=== PATIENT | female | born 1985 | race Caucasian/White ===

== ENCOUNTER 2018-09-17 16:00 | Inpatient (IN) ==
--- NOTE | 2018-09-17 16:29 | Emergency Department Note ---
Disposition Clinical Impression: Wide-complex tachycardia, Palpitations Disposition: Admitted As Inpatient Time of Disposition: 19:22 Arrhythmia/Palpitations HPI - General Chief Complaint: ED Arrhythmia/Palpitations Stated Complaint: Palpatations Time Seen by Provider: 09/17/18 16:03 Source: patient Limitations: no limitations Nursing Notes Reviewed: Yes Vital Signs Reviewed: Yes - History of Present Illness HPI Narrative: Patient is a 33-year-old female with no significant past medical history. Patient states she is on spironolactone for thinning of the hair. She also is on control pills. She denies anti-anxiolytic or anti-depressive medications. She also states she takes a multivitamin and [id number] cranberry pills. She states after a year and a half, she reintroduced caffeinated pop into her diet. She drinks 10-20 ounces of soda pop per day. Yesterday, she had a 15 minute episode of palpitations and feeling lightheaded while sitting watching the baseball game. Symptoms resolved spontaneously. She states she has never sprained this before. Today around 12:30 PM, she complains of frequent prolonged episodes of palpitations. She states she feels like her heart is fluttering and she has a double left-sided chest pain ache associated with it. She also complains of shortness of breath and lightheadedness at times. She states she has a family history of a grandfather having an myocardial infarction and a brother with a murmur. Her father has hypertension and hyperlipidemia. She denies recent antibiotic use, fevers or chills, Abdominal pain, nausea oing, dysuria, hematuria, diarrhea. - Related Data Home Medications Medication Instructions Recorded Confirmed Cetirizine HCl [Zyrtec] 10 mg PO DAILY 09/17/18 09/17/18 Cranberry Conc/C/Bacill Coag 1 each PO DAILY 09/17/18 09/17/18 [Cranberry Tablet] Desog-E.estradiol/E.estradiol 1 tab PO DAILY 09/17/18 09/17/18 [Viorele 28 Day Tablet] Spironolactone 100 mg PO DAILY 09/17/18 09/17/18 Allergies Allergy/AdvReac Type Severity Reaction Status Date / Time No Known Allergies Allergy Verified 09/17/18 16:03 All systems ED: reviewed and negative except as stated. Review of Systems: As Per HPI Constitutional: Denies: fever, chills Cardiovascular: Reports: chest pain, palpitations Respiratory: Reports: dyspnea. Denies: cough Gastrointestinal: Denies: abdominal pain, nausea, vomiting Genitourinary: Denies: dysuria, hematuria Neurological: Denies: headache, weakness Past Medical History - Past Medical History Attestation: Yes The following information was validated with the patient. Source: patient Medical history: Reports: no medical history - Social History Smoking Status: Never smoker Alcohol use: Reports: none Drug use: Reports: none Physical Exam - General Limitations: no limitations General appearance: alert, in no apparent distress - Head Head exam: atraumatic, normocephalic, normal inspection - Eye Eye exam: Present: normal appearance, EOMI - ENT ENT exam: normal exam, mucous membranes moist - Neck Neck exam: Present: normal inspection, trachea midline - Chest Chest inspection: Present: normal inspection, symmetric chest wall rise - Respiratory Respiratory exam: Present: normal lung sounds bilaterally. Absent: respiratory distress, wheezes - Cardiovascular Cardiovascular exam: Present: other (Regular rate and normal rhythm with a 5 beat sinus tachycardia, spontaneously converting back to sinus rhythm. No murmur) - Abdominal Exam Abdominal exam: Present: soft, Non-Tender. Absent: distention - Extremities Exam Extremities exam: Present: normal capillary refill. Absent: pedal edema, calf tenderness - Neurological Exam Neurological exam: Present: alert, oriented X3 - Skin Skin exam: Present: warm, diaphoresis. Absent: pallor Course Vital Signs Temperature 97.8 F 09/17/18 16:01 Pulse Rate 82 09/17/18 16:01 Respiratory Rate 16 09/17/18 16:01 Blood Pressure 140/85 09/17/18 16:01 O2 Sat by Pulse Oximetry 98 09/17/18 16:01 Temperature 97.8 F 09/17/18 16:01 Pulse Rate 82 09/17/18 16:01 Respiratory Rate 16 09/17/18 16:01 Blood Pressure 140/85 09/17/18 16:01 O2 Sat by Pulse Oximetry 98 09/17/18 16:01 Oxygen Delivery Oxygen Delivery Room Air Arrhythmia/Palpitations - MDM Narrative Medical decision making narrative: During my physical examination, the patient was not on the monitor. During my cardiac exam, there is a period of 4-5 beats when the patient went into tachycardia and converted spontaneously to a normal sinus rhythm. No murmurs were heard. Lab work including TSH, CBC, BMP, mag, Allegra, troponin, d-dimer were all obtained. 16:25 The initial EKG was obtained and patient was placed on the monitor. She is having episodic wide-complex tachycardia. She spontaneously converts to normal sinus rhythm. Episodes are occurring frequently. Secondary to the prolonged QTC, magnesium 2 g was given. After, amiodarone 150 mg bolus was given with IV fluids. Patient has been closely monitored. She continues to have prolonged periods of wide-complex tachycardia. The patient states she feels her heart fluttering but denies lightheadedness, chest pain, shortness of breath. She remains alert and oriented during these episodes. A second bolus of 150 mg amiodarone was given followed by amiodarone drip 1 mg per minute. Calcium chloride was also given. Dr. Grimm discussed with cardiology. Stat echoca rdiogram will be obtained. 17:45 The patient remains asymptomatic, alert and oriented. She denies chest pain or shortness of breath. Blood pressures remained normotensive. We are continuing with the amiodarone drip. Episodes of wide-complex ventricular tachycardia or nonsustained and less frequent. We are continuing to monitor her closely. Labs are reviewed. D-dimer is not elevated, electrolytes are within normal limits. If the patient continues to have more frequent episodes where he stays in sustained V. tach, we will try procainamide. 18:[address] Smart, Cardiology. Will add urine tox screen and start metoprolol 25mg BID. Continue amiodarone drip. She will receive her first dose of metoprolol here in the emergency department. She will require ICU admission. Hospitalist will be paged for admission. 19:[address] Benitez, hospitalist, who accepts admission to ICU. Patient remains stable. - Medical Records Medical records reviewed: Yes I reviewed the patient's medical records. - Lab Data Lab results reviewed: Yes I reviewed the patient's lab results. Result diagrams: 09/18/18 04:57 09/18/18 04:57 Lab Results 09/17/18 09/17/18 09/17/18 Range/Units 16:20 16:20 16:23 WBC 10.9 (4.3-11.1) K/mcL RBC 4.89 (3.82-4.97) M/mcL Hgb 13.4 (11.5-15.4) g/dL Hct 41.2 (35.3-44.9) % MCV 84.3 (83.0-100.0) fL MCH 27.4 L (28.0-33.3) pg MCHC 32.5 (31.6-35.5) g/dL RDW 14.2 (11.5-14.5) % Plt Count 387 (140-400) K/mcL MPV 9.2 L (9.4-12.4) fL Immature Gran % 0.4 (0-4) % Seg Neutrophils % 59.7 % Lymphocytes % 31.3 % Monocytes % 7.2 % Eosinophils % 0.9 % Basophils % 0.5 % Neutrophils # 6.5 (1.6-8.9) K/mcL Lymphocytes # 3.4 (0.6-4.6) K/mcL Monocytes # 0.8 (0.0-1.3) K/mcL Eosinophils # 0.1 (0.0-0.6) K/mcL Basophils # 0.1 (0.0-0.2) K/mcL D-Dimer 351 (0-500) ng/mLFEU Sodium 142 (136-145) mEq/L Potassium 3.6 (3.5-5.1) mEq/L Chloride 109 H (98-107) mEq/L Carbon Dioxide 22 L (23-29) mEq/L BUN 11 (6-20) mg/dL Creatinine 0.78 (0.60-1.20) mg/dL Est GFR ( Amer) > 60 (> 60) Est GFR (Non-Af Amer) > 60 (> 60) BUN/Creatinine Ratio 14 (6-26) Glucose 111 H (70-105) mg/dL Calculated Osmolality 294 (280-300) Calcium 9.1 (8.6-10.3) mg/dL Phosphorus 3.2 (2.7-4.5) mg/dL Magnesium 2.0 (1.6-2.6) mg/dL Troponin I < 0.03 (< 0.04) ng/mL TSH 2.280 (0.340-5.600) mcIU/mL Urine Color (Yellow) Urine Clarity (Clear) Urine pH (5.0-8.0) pH Units Ur Specific [place] (1.010-1.025) Urine Protein (Neg-Trace) mg/dL Urine Glucose (UA) (Normal) mg/dL Urine Ketones (Negative) mg/dL Urine Blood (Negative) Urine Nitrite (Negative) Urine Bilirubin (Negative) Urine Urobilinogen (Normal) mg/dL Ur Leukocyte Esterase (Negative) Urine Microscopic RBC (0-3) per hpf Urine Microscopic WBC (0-3) per hpf Ur Squamous Epith Cells (None-Few) per lpf Urine Bacteria (None-Few) per hpf Hyaline Casts (None-Few) per lpf Ur Culture Indicated? (NO) Urine Test (Negative) Urine Opiates Screen (Jdmidz=702) ng/mL Ur Barbiturates Screen (Zekxxp=654) ng/mL Ur Phencyclidine Scrn (Cutoff=25) ng/mL Ur Amphetamines Screen (Icchft=7097) ng/mL U Benzodiazepines Scrn (Jbhknh=665) ng/mL Urine Cocaine Screen (Cutoff= 300) ng/mL U Marijuana (THC) Screen (Cutoff = 50) ng/mL Ur Drug Screen Interp 09/17/18 09/17/18 09/17/18 Range/Units 16:39 16:39 16:39 WBC (4.3-11.1) K/mcL RBC (3.82-4.97) M/mcL Hgb (11.5-15.4) g/dL Hct (35.3-44.9) % MCV (83.0-100.0) fL MCH (28.0-33.3) pg MCHC (31.6-35.5) g/dL RDW (11.5-14.5) % Plt Count (140-400) K/mcL MPV (9.4-12.4) fL Immature Gran % (0-4) % Seg Neutrophils % % Lymphocytes % % Monocytes % % Eosinophils % % Basophils % % Neutrophils # (1.6-8.9) K/mcL Lymphocytes # (0.6-4.6) K/mcL Monocytes # (0.0-1.3) K/mcL Eosinophils # (0.0-0.6) K/mcL Basophils # (0.0-0.2) K/mcL D-Dimer (0-500) ng/mLFEU Sodium (136-145) mEq/L Potassium (3.5-5.1) mEq/L Chloride (98-107) mEq/L Carbon Dioxide (23-29) mEq/L BUN (6-20) mg/dL Creatinine (0.60-1.20) mg/dL Est GFR ( Amer) (> 60) Est GFR (Non-Af Amer) (> 60) BUN/Creatinine Ratio (6-26) Glucose (70-105) mg/dL Calculated Osmolality (280-300) Calcium (8.6-10.3) mg/dL Phosphorus (2.7-4.5) mg/dL Magnesium (1.6-2.6) mg/dL Troponin I (< 0.04) ng/mL TSH (0.340-5.600) mcIU/mL Urine Color Yellow (Yellow) Urine Clarity Clear (Clear) Urine pH 6.0 (5.0-8.0) pH Units Ur Specific [place] 1.011 (1.010-1.025) Urine Protein Negative (Neg-Trace) mg/dL Urine Glucose (UA) Normal (Normal) mg/dL Urine Ketones Negative (Negative) mg/dL Urine Blood Negative (Negative) Urine Nitrite Negative (Negative) Urine Bilirubin Negative (Negative) Urine Urobilinogen Normal (Normal) mg/dL Ur Leukocyte Esterase Small H (Negative) Urine Microscopic RBC 0-3 (0-3) per hpf Urine Microscopic WBC 15-30 H (0-3) per hpf Ur Squamous Epith Cells Many H (None-Few) per lpf Urine Bacteria None Seen (None-Few) per hpf Hyaline Casts None Seen (None-Few) per lpf Ur Culture Indicated? YES A (NO) Urine Test Negative (Negative) Urine Opiates Screen Negative (Hczjxt=818) ng/mL Ur Barbiturates Screen Negative (Uxmeze=627) ng/mL Ur Phencyclidine Scrn Negative (Cutoff=25) ng/mL Ur Amphetamines Screen Negative (Zousmv=8093) ng/mL U Benzodiazepines Scrn Negative (Cdaxwz=431) ng/mL Urine Cocaine Screen Negative (Cutoff= 300) ng/mL U Marijuana (THC) Screen Negative (Cutoff = 50) ng/mL Ur Drug Screen Interp See Below - Radiology Data Radiology results reviewed: Yes I reviewed the patient's radiology results. Chest X-Ray 09/17/18 16:20 IMPRESSION: Negative portable study. D/ / Joan Barron Cha, MD / Joan Barron Cha, MD Interpreting Provider: Joan Barron Cha, MD Echocardiogram 09/17/18 17:25 Impressions: LVEF 65%. Normal LV chamber size, wall thickness and function. Normal left ventricular diastolic function. Normal right ventricular structure and function. Unable to estimate RVSP due to lack of TR jet. No significant valvular dysfunction. Left Ventricular Wall Motion: Rest Echo Findings All wall segments showed normal motion. Findings: Study Quality * Technically adequate exam. ECG Findings * Sinus tachycardia. Left Ventricle * LVEF 65%. * Normal LV chamber size, wall thickness and function. * Normal left ventricular diastolic function. Right Ventricle * Normal right ventricular structure and function. Left Atrium * Normal left atrial size. Right Atrium * Normal right atrial size. Interatrial Septum * Interatrial septum not well evaluated. Aortic Valve * Aortic valve not well visualized. * No aortic regurgitation. * No aortic stenosis. Mitral Valve * Normal mitral valve structure. * No mitral regurgitation. * No mitral stenosis. Tricuspid Valve * Trace tricuspid regurgitation. * No tricuspid stenosis. * Normal tricuspid valve structure. * Unable to estimate RVSP due to lack of TR jet. Pulmonic Valve * No pulmonic regurgitation. Aorta * Normally sized aortic root. Pericardium * The pericardium appears normal. IVC * Normal IVC dimensions and inspiratory collapse. Pulmonary Artery * Pulmonary artery not well visualized. - EKG Data EKG attestation: Yes I reviewed and interpreted this EKG. EKG results narrative: Initial EKG at 1626 shows wide complex tachycardia with heart rate 233. She has a prolonged QTC of 615. Critical Care Time Critical Care Time: Yes Total Critical Care Time: 55 Attestation: Critical care time was exclusive of separately billable procedures and treating other patients. Critical care was necessary to treat or prevent imminent or life-threatening deterioration. Critical care was time spent personally by me on the following activities: development of treatment plan with patient and/or surrogate as well as nursing, discussions with consultants, evaluation of patient's response to treatment, examination of patient, obtaining history from patient or surrogate, ordering and performing treatments and interventions, ordering and review of laboratory studies, ordering and review of radiographic studies, pulse oximetry and re-evaluation of patient's condition. Attestation Statement - Attestation Attestation: Resident Attestation: I examined this patient and my medical decision making was reviewed with the Resident Physician. I agree with the documented findings, disposition and treatment plan as described except to the extent set forth below. We independently had [id number] contact with the patient. Patient was presenting for evaluation of palpitations. Patient had intermittent episodes of feeling lightheaded and dizzy. While in the room evaluating her the patient was having runs of right complex tachycardia. Patient's episodes have been intermittent lasting anywhere from 5-20 seconds. Patient would then go back to sinus rhythm. During her runs of V. tach the patient's blood pressure remained stable. I did given initial dose of 150 mg of amiodarone. Patient did not have any significant response. Her initial EKG was concerning for prolonged QT so 2 mg of magnesium were given. With no significant response cardiology was paged. A second dose of 150 mg of amiodarone was given an amiodarone drip was started. Cardiology recommended procainamide if continued symptoms. Patient has not been unstable has not required cardioversion. The patient did receive calcium given the fact that she is not had significant response during the amiodarone treatment. After the completion of the second amiodarone bolus the patient started having only short runs of approximately 5 seconds of V. tach. This continued to become less frequent until the patient had a stable sinus rhythm. Patient has had occasional episodes of nonsustained V. tach proximally 4-5 seconds after this. Cardiology did come bedside to evaluate the patient. Patient will be admitted to the ICU for continued monitoring. General appearance: NAD, conversant Eyes: anicteric sclerae, moist conjunctivae HENT: Atraumatic; oropharynx clear with moist mucous membranes Neck: Normal appearance; Trachea midline Chest: Symmetrical chest rise; No respiratory distress Heart: Regular rate and rhythm Lungs: Clear to auscultation bilaterally Extremities: No peripheral edema or extremity tenderness Skin: Normal temperature, turgor and texture; no rash, ulcers or subcutaneous nodules Psych: Appropriate mood and affect Neuro: Awake and alert
[2018-09-17] MEDS ORDERED: 0.9 % Sodium Chloride 1,000 ML ONE (16:39)
[2018-09-17 16:55] LABS: Bilirubin,Urine Negative (Negative); Blood,Urine Negative (Negative); Clarity,Urine Clear (Clear); Color,Urine Yellow (Yellow); Glucose,Urine (UA) Normal (Normal); Ketones,Urine Negative (Negative); Leukocyte Esterase,Urine Small (Negative); Nitrite,Urine Negative (Negative); Protein,Urine Negative (Neg-Trace); Specific Gravity,Urine 1.011 (1.010-1.025); Urobilinogen,Urine Normal (Normal)
[2018-09-17 16:55] LABS: Basophils # 0.1 K/mcL (0.0-0.2); Basophils % 0.5 %; Eosinophils # 0.1 K/mcL (0.0-0.6); Eosinophils % 0.9 %; Hematocrit 41.2 % (35.3-44.9); Hemoglobin 13.4 g/dL (11.5-15.4); Immature Granulocytes % 0.4 % (0-4); Lymphocytes # 3.4 K/mcL (0.6-4.6); Lymphocytes % 31.3 %; Mean Corpuscular HGB Conc 32.5 g/dL (31.6-35.5); Mean Corpuscular Hemoglobin 27.4 pg (28.0-33.3); Mean Corpuscular Volume 84.3 fL (83.0-100.0); Mean Platelet Volume 9.2 fL (9.4-12.4); Monocytes # 0.8 K/mcL (0.0-1.3); Monocytes % 7.2 %; Neutrophils # 6.5 K/mcL (1.6-8.9); Platelet Count 387 K/mcL (140-400); Red Blood Count 4.89 M/mcL (3.82-4.97); Red Cell Distribution Width 14.2 % (11.5-14.5); Segmented Neutrophils % 59.7 %
[2018-09-17 16:58] LABS: Bacteria,Urine None Seen per hpf (None-Few); Hyaline Casts,Urine None Seen per lpf (None-Few); RBC,Urine 0-3 per hpf (0-3); Squamous Epithelial Cell,Urine Many per lpf (None-Few); WBC,Urine 15-30 per hpf (0-3)
[2018-09-17 17:13] LABS: BUN/Creatinine Ratio 14 (6-26); Blood Urea Nitrogen 11 mg/dL (6-20); Calcium 9.1 mg/dL (8.6-10.3); Carbon Dioxide 22 mEq/L (23-29); Chloride 109 mEq/L (98-107); Glucose 111 mg/dL (70-105); Osmolality,Calculated 294 (280-300); Phosphorous 3.2 mg/dL (2.7-4.5); Potassium 3.6 mEq/L (3.5-5.1); Sodium 142 mEq/L (136-145); Troponin I < 0.03 ng/mL (< 0.04); eGFR For Non-African Americans > 60 (> 60)
[2018-09-17] MEDS ORDERED: Amiodarone Premix 150 MG/100 ML BAG IVPB ONE ×2 (17:21)
[2018-09-17] MEDS ORDERED: Amiodarone Premix 360 MG/200 ML BAG IVC ONE (17:21)
[2018-09-17] MEDS ORDERED: 0.9 % Sodium Chloride 1,000 ML IVC ONE ×2 (17:22→17:33)
[2018-09-17] MEDS ORDERED: D5 IVPB STA (17:27)
[2018-09-17] MEDS ORDERED: WATER IVPB STA (17:27)
[2018-09-17] MEDS ORDERED: PROCAINAMIDE IVPB STA (17:27)
--- NOTE | 2018-09-17 18:43 | Cardiology Consult Note ---
Date of Encounter: 09/17/18 Time of Encounter: 18:00 Assessment and Plan (1) Wide-complex tachycardia Current Visit: Yes Status: Acute Repetitive and and intermittent episodes of regular monomorphic wide complex tachycardia, suspicious of repetitive monomorphic VT Seems to be responding to amiodarone at this time as the rate has slowed down. Continue IV amiodarone maintenance. Obtain echocardiogram. Check TSH and urine toxicology.Keep K above 4 and Mag above 2. Will consult EP Discussion w patient/family: The assessment and plan as outlined above was discussed with the patient and/or family members who expressed understanding and agreement. All questions were answered. Thank you for involving us in the care of your patient. Please call with any questions. History of Present Illness Consult date: 09/17/18 Requesting physician: Dennis Grimm Consult reason: Wide complex tachycardia Chief complaint: Palpitations History of present illness: Ms. Chappell is a 33 year old female 33-year-old female with no past medical history, presenting with intermittent episodes of palpitations since yesterday, which caused more frequent around mid day today. Described as "fluttering in the chest "with associated lightheadedness and anxiety. Denies chest pain. No family history of sudden or premature coronary artery disease. She has no known history of congenital heart disease. She does not use illicit substances. She has 2 children who are alive and well. No history suggestive of cardiomyopathy. In the ER she was reportedly experiencing intermittent episodes of wide complex tachycardia on the monitor, which did not respond to initial bolus of IV amiodarone 150 mg, and so cardiology was emergently consulted. Past Med Surg Social Fam HX - Past Medical History Medical history: no medical history - Social History Smoking Status: Never smoker Alcohol use: none Drug use: none Medications and Allergies Cetirizine HCl [Zyrtec] 10 mg PO DAILY 09/17/18 [History] Cranberry Conc/C/Bacill Coag [Cranberry Tablet] 1 each PO DAILY 09/17/18 [History] Desog-E.estradiol/E.estradiol [Viorele 28 Day Tablet] 1 tab PO DAILY 09/17/18 [History] Spironolactone 100 mg PO DAILY 09/17/18 [History] Allergy/AdvReac Type Severity Reaction Status Date / Time No Known Allergies Allergy Verified 09/17/18 16:03 All Systems Review: The remainder of the systems were reviewed and are negative - Constitutional Constitutional: fatigue, no fever(s) - EENT Eyes: no blurred vision - Cardiovascular Cardiovascular: lightheadedness, rapid heart rate, no dyspnea on exertion, no radiating jaw, neck or arm pain, no leg edema, no paroxysmal nocturnal dyspnea, no slow heart rate - Respiratory Respiratory: no cough, no dyspnea, no wheezing - Gastrointestinal Gastrointestinal: no abdominal pain - Musculoskeletal Musculoskeletal: no muscle weakness - Neurological Neurological: no abnormal speech, no syncope - Psychiatric Psychiatric: anxiety - Hematological/Lymphatic Hematologic/Lymphatic: no easy bleeding Physical Examination Vital Signs, Last 4 Hours Temp Pulse Resp BP Pulse Ox 09/17/18 16:01 97.8 F 82 16 140/85 98 General: Conversant, Other (Anxious) HEENT: Atraumatic Neck: No JVD Cardiac: Reg Rate and Rhythm, Normal S1 and S2, No Murmur Lungs: Normal Breath Sounds, No Wheeze, Rales, Rhonchi Neuro: Alert and responsive, No focal deficits noted Musculoskeletal: No Chest Wall Tenderness Extremities: No Edema, Normal Pulses Results 09/17/18 16:20 09/17/18 16:20 Lab Results 09/17/18 09/17/18 09/17/18 16:20 16:20 16:23 WBC 10.9 Hgb 13.4 Hct 41.2 Plt Count 387 D-Dimer 351 Sodium 142 Potassium 3.6 Chloride 109 H Carbon Dioxide 22 L BUN 11 Creatinine 0.78 Glucose 111 H Calcium 9.1 Magnesium 2.0 Troponin I < 0.03 TSH 2.280 Consult Discharge Plan - Plan Referrals: Joan Vyas CNP [Primary Care Provider] -
[2018-09-17 19:14] LABS: Amphetamine Screen,Urine Negative ng/mL (Cutoff=1000); Barbiturate Screen,Urine Negative ng/mL (Cutoff=200); Benzodiazepines Screen,Urine Negative ng/mL (Cutoff=200); Cannabinoid Screen,Urine Negative ng/mL (Cutoff = 50); Cocaine Screen,Urine Negative ng/mL (Cutoff= 300); Opiate Screen,Urine Negative ng/mL (Cutoff=300); Phencyclidine Screen,Urine Negative ng/mL (Cutoff=25)
--- NOTE | 2018-09-17 20:00 | Internal Med History&Physical ---
<KillianColeen N - Last Filed: 09/18/18 03:05> Date of Encounter: 09/18/18 Time of Encounter: 19:59 Internal Medicine - H&P: HPI Chief complaint: Palpitations Admitted From: Emergency Dept History of present illness: Ms. Chappell is a 33 year old female with a history of alopecia who presents the emergency departments afternoon for evaluation of palpitations. Patient reports that she began having 10-20 minute episode of palpitations yesterday, which she described as her "heart fluttering", that self resolved and were not associated with shortness of breath or lightheadedness. She states that around 12:30 this afternoon, she began to feel a similar sensation; however, this persisted, prompting her to continue emergency room for evaluation. EKG was obtained, which demonstrated wide complex tachycardia, with prolonged QTC of 6:15 and rate of 233, concerning for repetitive episodes of monomorphic ventricular tachycardia. Patient was administered amiodarone bolus and on however, she was not responsive to initial dose, prompting cardiology consultation on the emergency department. Patient was also administered calcium and magnesium, and was eventually controlled with amiodarone drip. Once rate controlled, patient reported resolution of symptoms. Patient was admitted to the hospitalist service for ongoing monitoring and continuation of amiodarone drip. Past Med Surg Social Fam HX - Past Medical History Medical history: no medical history - Social History Smoking Status: Never smoker Alcohol use: none Drug use: none Internal Medicine - H&P: Meds Cetirizine HCl [Zyrtec] 10 mg PO DAILY 09/17/18 [History] Cranberry Conc/C/Bacill Coag [Cranberry Tablet] 1 each PO DAILY 09/17/18 [History] Desog-E.estradiol/E.estradiol [Viorele 28 Day Tablet] 1 tab PO DAILY 09/17/18 [History] Spironolactone 100 mg PO DAILY 09/17/18 [History] Allergy/AdvReac Type Severity Reaction Status Date / Time No Known Allergies Allergy Verified 09/17/18 16:03 All Systems PM: A 10-system review of systems was performed and is negative for pertinent findings except as documented above in the HPI. - Constitutional Constitutional: no chills, no fever(s), no night sweats - Cardiovascular Cardiovascular ROS IM: palpitations, no chest pain, no diaphoresis, no dyspnea, no lightheadedness, no syncope - Respiratory Respiratory: dyspnea, no cough, no wheezing, no excessive phlegm production - Constitutional Vitals: Temp Pulse Resp BP Pulse Ox 97.8 F 82 16 140/85 98 09/17/18 16:01 09/17/18 16:01 09/17/18 16:01 09/17/18 16:01 09/17/18 16:01 Exam: GENERAL: Well-developed, well-nourished adult female in no acute distress. She is resting in bed comfortably. HEENT: Atraumatic and normocephalic. CARDIOVASCULAR: Regular rate and rhythm. S1 and S2 present. No murmurs, gallops, or rubs. RESPIRATORY: Clear to auscultation bilaterally. Chest rises and falls symmetrica lly without accessory muscle use. GASTROINTESTINAL: Abdomen is soft, nontender, nondistended. Bowel sounds present 4 quadrants. EXTREMITIES: No clubbing, cyanosis, or edema. SKIN: Warm, dry, and intact. NEUROLOGIC: Alert and oriented x3. Patient is cooperative with exam and answers questions appropriately. No apparent focal deficits. PSYCHIATRIC: Appropriate mood and affect. Internal Med - H&P Results - Labs CBC & Chem 7: 09/17/18 16:20 09/17/18 16:20 Labs: Short CBC 09/17/18 Range/Units 16:20 WBC 10.9 (4.3-11.1) K/mcL Hgb 13.4 (11.5-15.4) g/dL Hct 41.2 (35.3-44.9) % Plt Count 387 (140-400) K/mcL Neutrophils # 6.5 (1.6-8.9) K/mcL BMP 09/17/18 16:20 Sodium 142 Potassium 3.6 Chloride 109 H Carbon Dioxide 22 L BUN 11 Creatinine 0.78 Glucose 111 H Calcium 9.1 Cardiac Enzymes 09/17/18 Range/Units 16:20 Troponin I < 0.03 (< 0.04) ng/mL Urine 09/17/18 Range/Units 16:39 Urine Color Yellow (Yellow) Urine Clarity Clear (Clear) Urine pH 6.0 (5.0-8.0) pH Units Ur Specific [place] 1.011 (1.010-1.025) Urine Protein Negative (Neg-Trace) mg/dL Urine Glucose (UA) Normal (Normal) mg/dL - Impressions ITS Impressions Chest X-Ray 09/17/18 16:20 IMPRESSION: Negative portable study. D/ / Joan Barron Cha, MD / Joan Barron Cha, MD Interpreting Provider: Joan Barron Cha, MD Echocardiogram 09/17/18 17:25 Impressions: LVEF 65%. Normal LV chamber size, wall thickness and function. Normal left ventricular diastolic function. Normal right ventricular structure and function. Unable to estimate RVSP due to lack of TR jet. No significant valvular dysfunction. Left Ventricular Wall Motion: Rest Echo Findings All wall segments showed normal motion. Findings: Study Quality * Technically adequate exam. ECG Findings * Sinus tachycardia. Left Ventricle * LVEF 65%. * Normal LV chamber size, wall thickness and function. * Normal left ventricular diastolic function. Right Ventricle * Normal right ventricular structure and function. Left Atrium * Normal left atrial size. Right Atrium * Normal right atrial size. Interatrial Septum * Interatrial septum not well evaluated. Aortic Valve * Aortic valve not well visualized. * No aortic regurgitation. * No aortic stenosis. Mitral Valve * Normal mitral valve structure. * No mitral regurgitation. * No mitral stenosis. Tricuspid Valve * Trace tricuspid regurgitation. * No tricuspid stenosis. * Normal tricuspid valve structure. * Unable to estimate RVSP due to lack of TR jet. Pulmonic Valve * No pulmonic regurgitation. Aorta * Normally sized aortic root. Pericardium * The pericardium appears normal. IVC * Normal IVC dimensions and inspiratory collapse. Pulmonary Artery * Pulmonary artery not well visualized. - Assessment and Plan (1) Wide-complex tachycardia Current Visit: Yes Status: Acute Assessment and plan: Unclear etiology. Patient is not on any medications associated with QTC prolongation, and urine toxicology was negative. Patient did report having recently increased her consumption of caffeine, which may be contributing to this problem. Stat echocardiogram was obtained, which demonstrated LVEF 65%, normal left ventricular chamber size, wall thickness, and function. Normal left and right ventricular structure and function were noted, and patient was found to have no significant valvular dysfunction. - Amiodarone gtt and metoprolol 25mg BID. Continue telemetry monitoring. - Per cardiology recommendation, will monitor electrolytes and replete as needed to keep potassium greater than 4 and magnesium greater than 2. - Appreciate cardiology recommendations regarding management of this patient. - Electrophysiology consult placed. (2) History of alopecia Current Visit: Yes Status: Chronic (3) DVT prophylaxis Current Visit: Yes Status: Acute Assessment and plan: - Heparin 5000units SQ Q8H. - Time Spent With Patient Total time spent is greater than 50% in coordination of care (as documented) at patient's floor/unit and/or counseling patient: <BarbyAlexa - Last Filed: 09/18/18 06:42> Date of Encounter: 09/17/18 All Systems PM: A 10-system review of systems was performed and is negative for pertinent findings except as documented above in the HPI. - Constitutional Vitals: Temp Pulse Resp BP Pulse Ox 97.8 F 82 16 140/85 98 09/17/18 16:01 09/17/18 16:01 09/17/18 16:01 09/17/18 16:01 09/17/18 16:01 Internal Med - H&P Results - Labs CBC & Chem 7: 09/18/18 04:57 09/18/18 04:57 Labs: Short CBC 09/17/18 Range/Units 16:20 WBC 10.9 (4.3-11.1) K/mcL Hgb 13.4 (11.5-15.4) g/dL Hct 41.2 (35.3-44.9) % Plt Count 387 (140-400) K/mcL Neutrophils # 6.5 (1.6-8.9) K/mcL BMP 09/17/18 16:20 Sodium 142 Potassium 3.6 Chloride 109 H Carbon Dioxide 22 L BUN 11 Creatinine 0.78 Glucose 111 H Calcium 9.1 Cardiac Enzymes 09/17/18 Range/Units 16:20 Troponin I < 0.03 (< 0.04) ng/mL Urine 09/17/18 Range/Units 16:39 Urine Color Yellow (Yellow) Urine Clarity Clear (Clear) Urine pH 6.0 (5.0-8.0) pH Units Ur Specific [place] 1.011 (1.010-1.025) Urine Protein Negative (Neg-Trace) mg/dL Urine Glucose (UA) Normal (Normal) mg/dL - Impressions ITS Impressions Chest X-Ray 09/17/18 16:20 IMPRESSION: Negative portable study. D/ / Joan Barron Cha, MD / Joan Barron Cha, MD Interpreting Provider: Joan Barron Cha, MD Echocardiogram 09/17/18 17:25 Impressions: LVEF 65%. Normal LV chamber size, wall thickness and function. Normal left ventricular diastolic function. Normal right ventricular structure and function. Unable to estimate RVSP due to lack of TR jet. No significant valvular dysfunction. Left Ventricular Wall Motion: Rest Echo Findings All wall segments showed normal motion. Findings: Study Quality * Technically adequate exam. ECG Findings * Sinus tachycardia. Left Ventricle * LVEF 65%. * Normal LV chamber size, wall thickness and function. * Normal left ventricular diastolic function. Right Ventricle * Normal right ventricular structure and function. Left Atrium * Normal left atrial size. Right Atrium * Normal right atrial size. Interatrial Septum * Interatrial septum not well evaluated. Aortic Valve * Aortic valve not well visualized. * No aortic regurgitation. * No aortic stenosis. Mitral Valve * Normal mitral valve structure. * No mitral regurgitation. * No mitral stenosis. Tricuspid Valve * Trace tricuspid regurgitation. * No tricuspid stenosis. * Normal tricuspid valve structure. * Unable to estimate RVSP due to lack of TR jet. Pulmonic Valve * No pulmonic regurgitation. Aorta * Normally sized aortic root. Pericardium * The pericardium appears normal. IVC * Normal IVC dimensions and inspiratory collapse. Pulmonary Artery * Pulmonary artery not well visualized. - Time Spent With Patient Total time spent is greater than 50% in coordination of care (as documented) at patient's floor/unit and/or counseling patient: Greater than 35 minutes - Attending Attestation I performed a history and physical exam of the patient on 09/17/18 and discussed management with the resident. I reviewed the resident's note and agree with the documented findings and plan of care. Stefania Chappell is a 33-year-old obese woman who currently takes a number of agents for alopecia who presents to the ER complaining of palpitations. She states that last night she felt fluttering in her chest lasting about 10-15 minutes occurring for 3-4 episodes each time and subsequently subsided. Today around noon she started feeling the fluttering sensation in her heart again but this time was sustained over time and accompanied by mild dyspnea and chest discomfort. She sought medical attention and in the ER was seen to have a wide complex tachycardia on the monitor. EKG reviewed by me show sustained ventricular tachycardia with a QTC exceeding 600 msecs. She was given 2 g magnesium sulfate and subsequently started on amiodarone. She was also given calcium chloride. Lab work was grossly within normal limits and her urine tox screen was negative. She says she only takes oral contraceptive pills, [id number] antihistamine and v itamins as well as prescription spironolactone for alopecia. Family members state that she recently introduced caffeine heavy beverages (Ski pop) reporting a locally made soda that has significant caffeine content. It is stated that this was started over the past weeks and drinks heavy volumes. No alcohol or illicit drug use reported. She is currently in sinus tachycardia. Will admit to a monitored setting for monomorphic wide complex tachycardia consistent with sustained V-tach. Will continue amiodarone, obtain screening echo to assess morphology and rule out structure heart disease, monitor electrolytes closely. The patient is advised not to have any caffeinated beverages for the time being given the confounding nature of this report with onset of her palpitations. She does not appear to be on any medications that would induce this. Her QT prolongation warrants close monitoring until normalization. Family history remarkable for "tachycardia" in brother. MOSES KHANNA.
[2018-09-17] MEDS: Amiodarone Premix 360 MG/200 ML BAG IVC SCH (23:00)
[2018-09-17] MEDS: *HR* Heparin 5,000 UNIT/ML VIAL SQ SCH (23:00)
[2018-09-18] MEDS ORDERED: Potassium Chloride Elixir 20 MEQ/15 ML UDC PO ONE (00:31)
[2018-09-18 05:57] LABS: Basophils % 0.4 %; Eosinophils # 0.1 K/mcL (0.0-0.6); Eosinophils % 0.7 %; Hematocrit 39.8 % (35.3-44.9); Hemoglobin 13.2 g/dL (11.5-15.4); Immature Granulocytes % 0.3 % (0-4); Lymphocytes # 2.5 K/mcL (0.6-4.6); Lymphocytes % 26.2 %; Mean Corpuscular HGB Conc 33.2 g/dL (31.6-35.5); Mean Corpuscular Hemoglobin 27.7 pg (28.0-33.3); Mean Corpuscular Volume 83.6 fL (83.0-100.0); Mean Platelet Volume 9.3 fL (9.4-12.4); Monocytes # 0.7 K/mcL (0.0-1.3); Monocytes % 7.2 %; Neutrophils # 6.1 K/mcL (1.6-8.9); Platelet Count 375 K/mcL (140-400); Red Blood Count 4.76 M/mcL (3.82-4.97); Red Cell Distribution Width 14.4 % (11.5-14.5); Segmented Neutrophils % 65.2 %
[2018-09-18 06:15] LABS: Alanine Aminotransferase 15 Units/L (7-52); Albumin/Globulin Ratio 1.5 (1.1-2.2); Alkaline Phosphatase 69 Units/L (34-104); Aspartate Amino Transferase 15 Units/L (13-39); BUN/Creatinine Ratio 10 (6-26); Bilirubin,Direct 0.1 mg/dL (0.0-0.2); Bilirubin,Indirect 0.2 mg/dL (0.0-1.2); Bilirubin,Total 0.3 mg/dL (0.3-1.0); Blood Urea Nitrogen 7 mg/dL (6-20); Calcium 9.5 mg/dL (8.6-10.3); Carbon Dioxide 21 mEq/L (23-29); Chloride 108 mEq/L (98-107); Globulin 2.7 g/dL (2.4-3.5); Glucose 97 mg/dL (70-105); Osmolality,Calculated 286 (280-300); Phosphorous 3.1 mg/dL (2.7-4.5); Sodium 139 mEq/L (136-145); Total Protein 6.7 g/dL (6.4-8.9); eGFR For Non-African Americans > 60 (> 60)
[2018-09-18] MEDS: *HR* Heparin 5,000 UNIT/ML VIAL SQ SCH ×3 (07:31→23:27)
--- NOTE | 2018-09-18 09:53 | Internal Med Progress Note ---
Hospitalist Progress Note - Encounter Date of Encounter: 09/18/18 - Exam Vitals: Temp Pulse Resp BP Pulse Ox 98.2 F 84 20 136/86 98 09/18/18 07:00 09/18/18 07:38 09/18/18 07:00 09/18/18 07:00 09/18/18 07:00 - Time Spent with Patient Total time spent is greater than 50% in coordination of care (as documented) at patient's floor/unit and/or counseling patient: Internal Medicine: Result - Labs CBC & Chem 7: 09/18/18 04:57 09/18/18 04:57 Labs: Short CBC 09/17/18 09/18/18 Range/Units 16:20 04:57 WBC 10.9 9.4 (4.3-11.1) K/mcL Hgb 13.4 13.2 (11.5-15.4) g/dL Hct 41.2 39.8 (35.3-44.9) % Plt Count 387 375 (140-400) K/mcL Neutrophils # 6.5 6.1 (1.6-8.9) K/mcL BMP 09/17/18 09/18/18 16:20 04:57 Sodium 142 139 Potassium 3.6 4.0 Chloride 109 H 108 H Carbon Dioxide 22 L 21 L BUN 11 7 Creatinine 0.78 0.69 Glucose 111 H 97 Calcium 9.1 9.5 Cardiac Enzymes 09/17/18 Range/Units 16:20 Troponin I < 0.03 (< 0.04) ng/mL Liver Function 09/18/18 Range/Units 04:57 Total Bilirubin 0.3 (0.3-1.0) mg/dL Direct Bilirubin 0.1 (0.0-0.2) mg/dL AST 15 (13-39) Units/L ALT 15 (7-52) Units/L Alkaline Phosphatase 69 (34-104) Units/L Albumin 4.0 (3.5-5.7) g/dL Urine 09/17/18 Range/Units 16:39 Urine Color Yellow (Yellow) Urine Clarity Clear (Clear) Urine pH 6.0 (5.0-8.0) pH Units Ur Specific [place] 1.011 (1.010-1.025) Urine Protein Negative (Neg-Trace) mg/dL Urine Glucose (UA) Normal (Normal) mg/dL - ABG Interpretation ABG results: PT/INR, D-dimer 351 ng/mLFEU (0-500) 09/17/18 16:23 - Impressions Impressions Chest X-Ray 09/17/18 16:20 IMPRESSION: Negative portable study. D/ / Joan Barron Cha, MD / Joan Barron Cha, MD Interpreting Provider: Joan Barron Cha, MD Echocardiogram 09/17/18 17:25 Impressions: LVEF 65%. Normal LV chamber size, wall thickness and function. Normal left ventricular diastolic function. Normal right ventricular structure and function. Unable to estimate RVSP due to lack of TR jet. No significant valvular dysfunction. Left Ventricular Wall Motion: Rest Echo Findings All wall segments showed normal motion. Findings: Study Quality * Technically adequate exam. ECG Findings * Sinus tachycardia. Left Ventricle * LVEF 65%. * Normal LV chamber size, wall thickness and function. * Normal left ventricular diastolic function. Right Ventricle * Normal right ventricular structure and function. Left Atrium * Normal left atrial size. Right Atrium * Normal right atrial size. Interatrial Septum * Interatrial septum not well evaluated. Aortic Valve * Aortic valve not well visualized. * No aortic regurgitation. * No aortic stenosis. Mitral Valve * Normal mitral valve structure. * No mitral regurgitation. * No mitral stenosis. Tricuspid Valve * Trace tricuspid regurgitation. * No tricuspid stenosis. * Normal tricuspid valve structure. * Unable to estimate RVSP due to lack of TR jet. Pulmonic Valve * No pulmonic regurgitation. Aorta * Normally sized aortic root. Pericardium * The pericardium appears normal. IVC * Normal IVC dimensions and inspiratory collapse. Pulmonary Artery * Pulmonary artery not well visualized. Consult Discharge Plan - Plan Referrals: Joan Vyas, BILLET EXAMINER [Primary Care Provider] -
--- NOTE | 2018-09-18 09:57 | Electrophysiology Consult Note ---
<Barron Merida - Last Filed: 09/18/18 13:45> Date of Encounter: 09/18/18 Time of Encounter: 09:55 Assessment and Plan (1) Wide-complex tachycardia Current Visit: Yes Status: Acute Pt presented with frequent intermittent episodes of wide complex ventricular tachycardia. VT resolved with IV amiodarone. Currently on amiodarone gtt. EKG after WCT resolved showed SR, no acute ST changes. Qt/QTC normal. Reviewed with Dr. Mohr, possible epsilon wave in inferior leads. TTE completed shows preserved EF. Normal RV structure and function and no significant valvular disease. TSH normal. Keep magnesium 2.0 or above and potassium 4.0 or above. Discussed with Dr. Mohr, recommend starting metoprolol 25 mg BID. Stress test recommended tomorrow for further ischemic evaluation. Recommend cardiac MRI, if no recurrent VT can do out-pt. Continue to monitor telemetry. Discussion w patient/family: The assessment and plan as outlined above was discussed with the patient and/or family members who expressed understanding and agreement. All questions were answered. Thank you for involving us in the care of your patient. Please call with any questions. History of Present Illness Consult date: 09/18/18 Requesting physician: Zander Smart Consult reason: wide complex tachycardia Chief complaint: Palpitations History of present illness: Ms. Chappell is a 33 year old female with past medical history of alopecia and seasonal allergies who presented with c/o palpitations and rapid heart beat. She was found to have frequent intermittent episodes of wide complex tachycardia. Palpitations on-going since Monday. She was treated with IV magnesium and IV amiodarone. No recurrent VT seen on telemetry after IV amiodarone. Electrophysiology consulted for further recommendations. She denies prior cardiac history. Denies drug use. No recent antibiotic use. Past Med Surg Social Fam HX - Past Medical History Medical history: no medical history - Past Surgical History Surgical History: no surgical history - Social History Smoking Status: Never smoker Alcohol use: none Drug use: none Medications and Allergies Cetirizine HCl [Zyrtec] 10 mg PO DAILY 09/17/18 [History] Cranberry Conc/C/Bacill Coag [Cranberry Tablet] 1 each PO DAILY 09/17/18 [History] Desog-E.estradiol/E.estradiol [Viorele 28 Day Tablet] 1 tab PO DAILY 09/17/18 [History] Spironolactone 100 mg PO DAILY 09/17/18 [History] Allergy/AdvReac Type Severity Reaction Status Date / Time No Known Allergies Allergy Verified 09/17/18 16:03 All Systems Review: The remainder of the systems were reviewed and are negative Physical Examination Vital Signs, Last 4 Hours Temp Pulse Resp BP Pulse Ox 09/18/18 07:38 84 09/18/18 07:00 98.2 F 88 20 136/86 98 09/18/18 06:00 72 19 111/79 98 General: Conversant, No Apparent Distress HEENT: Atraumatic, Normocephaly, Mucus Membranes Moist Neck: No JVD, Normal carotid pulses Cardiac: Reg Rate and Rhythm, Normal S1 and S2, No Murmur Lungs: Normal Breath Sounds, No Wheeze, Rales, Rhonchi Neuro: Alert and responsive, No focal deficits noted Abdomen: Soft, Non-Tender Skin: No rashes noted on visualized skin Musculoskeletal: No Chest Wall Tenderness Extremities: No Clubbing, No Cyanosis, No Edema, Normal Pulses Results 09/18/18 04:57 09/18/18 04:57 Lab Results 09/17/18 09/17/18 09/17/18 16:20 16:20 16:23 WBC 10.9 Hgb 13.4 Hct 41.2 Plt Count 387 D-Dimer 351 Sodium 142 Potassium 3.6 Chloride 109 H Carbon Dioxide 22 L BUN 11 Creatinine 0.78 Glucose 111 H Calcium 9.1 Magnesium 2.0 Total Bilirubin AST ALT Alkaline Phosphatase Troponin I < 0.03 TSH 2.280 09/18/18 09/18/18 04:57 04:57 WBC 9.4 Hgb 13.2 Hct 39.8 Plt Count 375 D-Dimer Sodium 139 Potassium 4.0 Chloride 108 H Carbon Dioxide 21 L BUN 7 Creatinine 0.69 Glucose 97 Calcium 9.5 Magnesium 2.0 Total Bilirubin 0.3 AST 15 ALT 15 Alkaline Phosphatase 69 Troponin I TSH - Imaging and Cardiology Echo: report reviewed - EKG Interpretation EKG results cardiology: personally reviewed Consult Discharge Plan - Plan Referrals: Joan Vyas, SOCIAL STUDIES DEPARTMENT CHAIR [Primary Care Provider] - <Erasmo Mohr - Last Filed: 09/18/18 16:08> Date of Encounter: 09/18/18 - Attending Attestation I have personally performed a face to face evaluation on this patient. I have reviewed and agree with the care plan. History and Exam by me shows: Presents with recurrent VT, likely outflow tract in etiology. Would transition to po metoprolol. D/C amio. Needs echo and stress and most likely a cardiac MRI. Assessment and Plan Discussion w patient/family: The assessment and plan as outlined above was discussed with the patient and/or family members who expressed understanding and agreement. All questions were answered. Thank you for involving us in the care of your patient. Please call with any questions. History of Present Illness History of present illness: Ms. Chappell is a 33 year old female All Systems Review: The remainder of the systems were reviewed and are negative Physical Examination Vital Signs, Last 4 Hours Temp Pulse Resp BP Pulse Ox 09/18/18 15:28 99 15 115/79 96 09/18/18 14:00 96 22 118/82 96 09/18/18 13:00 94 22 111/85 99 09/18/18 12:27 98.2 F Results 09/18/18 04:57 09/18/18 04:57 Lab Results 09/17/18 09/17/18 09/17/18 16:20 16:20 16:23 WBC 10.9 Hgb 13.4 Hct 41.2 Plt Count 387 D-Dimer 351 Sodium 142 Potassium 3.6 Chloride 109 H Carbon Dioxide 22 L BUN 11 Creatinine 0.78 Glucose 111 H Calcium 9.1 Magnesium 2.0 Total Bilirubin AST ALT Alkaline Phosphatase Troponin I < 0.03 TSH 2.280 09/18/18 09/18/18 04:57 04:57 WBC 9.4 Hgb 13.2 Hct 39.8 Plt Count 375 D-Dimer Sodium 139 Potassium 4.0 Chloride 108 H Carbon Dioxide 21 L BUN 7 Creatinine 0.69 Glucose 97 Calcium 9.5 Magnesium 2.0 Total Bilirubin 0.3 AST 15 ALT 15 Alkaline Phosphatase 69 Troponin I TSH
--- NOTE | 2018-09-18 09:57 | Electrocardiograph Report ---
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
[2018-09-18] MEDS: Amiodarone Premix 360 MG/200 ML BAG IVC SCH (09:59)
--- NOTE | 2018-09-18 10:28 | Cardiology Progress Note ---
Date of Encounter: 09/18/18 Time of Encounter: 10:24 Assessment and Plan (1) Ventricular tachycardia Current Visit: Yes Status: Acute Findings on ECG consistent with VT, possibly outflow tract. Currently on amiodarone. Baseline ECG demonstrates normal sinus rhythm, normal intervals. TTE - structurally normal heart, normal LV function reported. EP consultation in progress. Will defer management to them. Discussion w patient/family: The assessment and plan as outlined above was discussed with the patient and/or family members who expressed understanding and agreement. All questions were answered. Thank you for involving us in the care of your patient. Please call with any questions. Subjective Principal diagnosis: Palpitations, Wide Complex Tachycardia Interval history: Events of yesterday noted. EP consultation in progress. Patient reports palpitations and lightheadedness on Monday while at a baseball game. Symptoms were attributed to sitting in the sun all day. Symptoms returned yesterday and more persistent. Describes as a constant fluttering sensation with some degree of lightheadedness. She denies any personal history of syncope or family history of sudden cardiac . No prior personal cardiac issues. Placed on amiodarone yesterday, no further arrhythmias overnight. Objective Vital Signs, Last 4 Hours Temp Pulse Resp BP Pulse Ox 09/18/18 10:03 80 111/85 09/18/18 08:00 86 21 113/86 98 09/18/18 07:38 84 09/18/18 07:00 98.2 F 88 20 136/86 98 General: Conversant, No Apparent Distress HEENT: Atraumatic, Normocephaly, Mucus Membranes Moist Neck: No JVD, Normal carotid pulses Cardiac: Reg Rate and Rhythm, Normal S1 and S2, No Murmur Lungs: Normal Breath Sounds, No Wheeze, Rales, Rhonchi Neuro: Alert and responsive, No focal deficits noted Abdomen: Soft, Non-Tender Skin: No rashes noted on visualized skin Musculoskeletal: No Chest Wall Tenderness Extremities: No Clubbing, No Cyanosis, No Edema Results 09/18/18 04:57 09/18/18 04:57 Lab Results 09/17/18 09/17/18 09/17/18 16:20 16:20 16:23 WBC 10.9 Hgb 13.4 Hct 41.2 Plt Count 387 D-Dimer 351 Sodium 142 Potassium 3.6 Chloride 109 H Carbon Dioxide 22 L BUN 11 Creatinine 0.78 Glucose 111 H Calcium 9.1 Magnesium 2.0 Total Bilirubin AST ALT Alkaline Phosphatase Troponin I < 0.03 TSH 2.280 09/18/18 09/18/18 04:57 04:57 WBC 9.4 Hgb 13.2 Hct 39.8 Plt Count 375 D-Dimer Sodium 139 Potassium 4.0 Chloride 108 H Carbon Dioxide 21 L BUN 7 Creatinine 0.69 Glucose 97 Calcium 9.5 Magnesium 2.0 Total Bilirubin 0.3 AST 15 ALT 15 Alkaline Phosphatase 69 Troponin I TSH - Imaging and Cardiology Echo: report reviewed - EKG Interpretation EKG results cardiology: personally reviewed Consult Discharge Plan - Plan Referrals: Joan Vyas, PATTERN CHANGER [Primary Care Provider] -
--- NOTE | 2018-09-18 11:02 | Electrocardiograph Report ---
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
--- NOTE | 2018-09-18 12:51 | Internal Med Progress Note ---
<Timothy Alvarado - Last Filed: 09/18/18 13:46> Hospitalist Progress Note - Encounter Date of Encounter: 09/18/18 Time of Encounter: 09:15 - Subjective Interval History: Patient seen and examined at bedside. She states that she is feeling well. Heart rate is currently well controlled. She denies palpitations, chest pain, chest discomfort, or shortness of breath this morning. She denies excessive caffeine intake or illicit drug use. She is resting comfortably in bed and has no complaints. Both cardiology and electrophysiology are currently following. - Exam Vitals: Temp Pulse Resp BP Pulse Ox 98.2 F 87 25 108/70 98 09/18/18 12:27 09/18/18 12:00 09/18/18 12:00 09/18/18 12:00 09/18/18 12:00 Exam: General: conversant, no acute distress Head: atraumatic, normocephalic Eye: PERRL, EOMI, conjuntiva pink, sclera anicteric Neck: Supple, trachea midline; No lymphadenopathy Respiratory: CTAB. No accessory muscle use, wheezes, rales, or rhonchi Cardiovascular: RRR, +S1/+S2; no murmurs, rubs, gallops Abdomen: Soft, nontender Extremities: warm, radial pulses palpable and symmetrical Psychiatric: Normal affect, normal mood Skin: Dry, intact - Assessment and Plan (1) Ventricular tachycardia Current Visit: Yes Status: Acute Assessment and Plan: ASSESSMENT - Patient initially presented with palpitations, chest discomfort, and shortness of breath - EKG on arrival demonstrated ventricular tachycardia, likely outflow tract; QTC 615 - Etiology is unknown at this time; patient denies recent life stressors, excessive caffeine intake, or illicit drug use - UDS was negative; Home medications reviewed; no contributory medications identified - On arrival, adenosine administered; this was ineffective; cardiology was consulted as a result - Patient returned to sinus rhythm after being placed on an amiodarone drip - TTE: EF 65%, normal LV diastolic dysfunction, no valvular abnormalities - TSH within normal limits PLAN - Continue amiodarone drip, Lopressor 25 mg PO BID - Cardiology and electrophysiology currently following; would appreciate any further recommendations - Will order magnesium with morning BMP; maintain potassium >4 and magnesium >2 (2) History of alopecia Current Visit: Yes Status: Chronic Assessment and Plan: - Patient has a documented history of alopecia, possibly secondary to PCOS - Patient takes both control and spironolactone - Both are being held for the time being (3) DVT prophylaxis Current Visit: Yes Status: Acute Assessment and Plan: Heparin subcutaneous - Time Spent with Patient Total time spent is greater than 50% in coordination of care (as documented) at patient's floor/unit and/or counseling patient: Internal Medicine: Result - Labs CBC & Chem 7: 09/18/18 04:57 09/18/18 04:57 Labs: Short CBC 09/17/18 09/18/18 Range/Units 16:20 04:57 WBC 10.9 9.4 (4.3-11.1) K/mcL Hgb 13.4 13.2 (11.5-15.4) g/dL Hct 41.2 39.8 (35.3-44.9) % Plt Count 387 375 (140-400) K/mcL Neutrophils # 6.5 6.1 (1.6-8.9) K/mcL BMP 09/17/18 09/18/18 16:20 04:57 Sodium 142 139 Potassium 3.6 4.0 Chloride 109 H 108 H Carbon Dioxide 22 L 21 L BUN 11 7 Creatinine 0.78 0.69 Glucose 111 H 97 Calcium 9.1 9.5 Cardiac Enzymes 09/17/18 Range/Units 16:20 Troponin I < 0.03 (< 0.04) ng/mL Liver Function 09/18/18 Range/Units 04:57 Total Bilirubin 0.3 (0.3-1.0) mg/dL Direct Bilirubin 0.1 (0.0-0.2) mg/dL AST 15 (13-39) Units/L ALT 15 (7-52) Units/L Alkaline Phosphatase 69 (34-104) Units/L Albumin 4.0 (3.5-5.7) g/dL Urine 09/17/18 Range/Units 16:39 Urine Color Yellow (Yellow) Urine Clarity Clear (Clear) Urine pH 6.0 (5.0-8.0) pH Units Ur Specific Challenge 1.011 (1.010-1.025) Urine Protein Negative (Neg-Trace) mg/dL Urine Glucose (UA) Normal (Normal) mg/dL - ABG Interpretation ABG results: PT/INR, D-dimer 351 ng/mLFEU (0-500) 09/17/18 16:23 - Impressions Impressions Chest X-Ray 09/17/18 16:20 IMPRESSION: Negative portable study. D/ / Joan Barron Cha, MD / Joan Barron Cha, MD Interpreting Provider: Joan Barron Cha, MD Echocardiogram 09/17/18 17:25 Impressions: LVEF 65%. Normal LV chamber size, wall thickness and function. Normal left ventricular diastolic function. Normal right ventricular structure and function. Unable to estimate RVSP due to lack of TR jet. No significant valvular dysfunction. Left Ventricular Wall Motion: Rest Echo Findings All wall segments showed normal motion. Findings: Study Quality * Technically adequate exam. ECG Findings * Sinus tachycardia. Left Ventricle * LVEF 65%. * Normal LV chamber size, wall thickness and function. * Normal left ventricular diastolic function. Right Ventricle * Normal right ventricular structure and function. Left Atrium * Normal left atrial size. Right Atrium * Normal right atrial size. Interatrial Septum * Interatrial septum not well evaluated. Aortic Valve * Aortic valve not well visualized. * No aortic regurgitation. * No aortic stenosis. Mitral Valve * Normal mitral valve structure. * No mitral regurgitation. * No mitral stenosis. Tricuspid Valve * Trace tricuspid regurgitation. * No tricuspid stenosis. * Normal tricuspid valve structure. * Unable to estimate RVSP due to lack of TR jet. Pulmonic Valve * No pulmonic regurgitation. Aorta * Normally sized aortic root. Pericardium * The pericardium appears normal. IVC * Normal IVC dimensions and inspiratory collapse. Pulmonary Artery * Pulmonary artery not well visualized. Consult Discharge Plan - Plan Referrals: Joan Vyas, GRIZZLY WORKER [Primary Care Provider] - <Pam Herrera - Last Filed: 09/18/18 13:50> Hospitalist Progress Note - Encounter Date of Encounter: 09/18/18 - Exam Vitals: Temp Pulse Resp BP Pulse Ox 98.2 F 94 22 111/85 99 09/18/18 12:27 09/18/18 13:00 09/18/18 13:00 09/18/18 13:00 09/18/18 13:00 - Time Spent with Patient Total time spent is greater than 50% in coordination of care (as documented) at patient's floor/unit and/or counseling patient: Internal Medicine: Result - Labs CBC & Chem 7: 09/18/18 04:57 09/18/18 04:57 Labs: Short CBC 09/17/18 09/18/18 Range/Units 16:20 04:57 WBC 10.9 9.4 (4.3-11.1) K/mcL Hgb 13.4 13.2 (11.5-15.4) g/dL Hct 41.2 39.8 (35.3-44.9) % Plt Count 387 375 (140-400) K/mcL Neutrophils # 6.5 6.1 (1.6-8.9) K/mcL BMP 09/17/18 09/18/18 16:20 04:57 Sodium 142 139 Potassium 3.6 4.0 Chloride 109 H 108 H Carbon Dioxide 22 L 21 L BUN 11 7 Creatinine 0.78 0.69 Glucose 111 H 97 Calcium 9.1 9.5 Cardiac Enzymes 09/17/18 Range/Units 16:20 Troponin I < 0.03 (< 0.04) ng/mL Liver Function 09/18/18 Range/Units 04:57 Total Bilirubin 0.3 (0.3-1.0) mg/dL Direct Bilirubin 0.1 (0.0-0.2) mg/dL AST 15 (13-39) Units/L ALT 15 (7-52) Units/L Alkaline Phosphatase 69 (34-104) Units/L Albumin 4.0 (3.5-5.7) g/dL Urine 09/17/18 Range/Units 16:39 Urine Color Yellow (Yellow) Urine Clarity Clear (Clear) Urine pH 6.0 (5.0-8.0) pH Units Ur Specific Challenge 1.011 (1.010-1.025) Urine Protein Negative (Neg-Trace) mg/dL Urine Glucose (UA) Normal (Normal) mg/dL - ABG Interpretation ABG results: PT/INR, D-dimer 351 ng/mLFEU (0-500) 09/17/18 16:23 - Impressions Impressions Chest X-Ray 09/17/18 16:20 IMPRESSION: Negative portable study. D/ / Joan Barron Cha, MD / Joan Barron Cha, MD Interpreting Provider: Joan Barron Cha, MD Echocardiogram 09/17/18 17:25 Impressions: LVEF 65%. Normal LV chamber size, wall thickness and function. Normal left ventricular diastolic function. Normal right ventricular structure and function. Unable to estimate RVSP due to lack of TR jet. No significant valvular dysfunction. Left Ventricular Wall Motion: Rest Echo Findings All wall segments showed normal motion. Findings: Study Quality * Technically adequate exam. ECG Findings * Sinus tachycardia. Left Ventricle * LVEF 65%. * Normal LV chamber size, wall thickness and function. * Normal left ventricular diastolic function. Right Ventricle * Normal right ventricular structure and function. Left Atrium * Normal left atrial size. Right Atrium * Normal right atrial size. Interatrial Septum * Interatrial septum not well evaluated. Aortic Valve * Aortic valve not well visualized. * No aortic regurgitation. * No aortic stenosis. Mitral Valve * Normal mitral valve structure. * No mitral regurgitation. * No mitral stenosis. Tricuspid Valve * Trace tricuspid regurgitation. * No tricuspid stenosis. * Normal tricuspid valve structure. * Unable to estimate RVSP due to lack of TR jet. Pulmonic Valve * No pulmonic regurgitation. Aorta * Normally sized aortic root. Pericardium * The pericardium appears normal. IVC * Normal IVC dimensions and inspiratory collapse. Pulmonary Artery * Pulmonary artery not well visualized. - Attending Attestation I examined this patient and my medical decision-making was reviewed with the Resident Physician Dr Aguirre. I agree with the documented findings, disposition and treatment plan as described except to the extent set forth below. Ms Chappell has pmhx alopecia and possible PCOS She is admitted for Wide complex tachycardia on amio gtt in ICU awake, at bedside. no cp, pressure or palpitaitons. no presyncope or sob. reviewed home meds and OTC vitamins and could not identify causative agent. drinks about 1 soda daily, no coffee or tea. no recent infections history of utis. currently increased freq since admit but no hesitancy or dysuria which is how her UTIs present. gen- alert, awake,appears stated age cv- reg rate and rhythm, normal s1,s2, no murmurs appreciated lungs- ctabl, no wheezing, rhonchi or crackles, normal resp efort on room air neuro- AAOx3 Wide Complex tachycardia consistent with VT no identifiable medication cause, tsh wnl, k and mag at goal, no identifiable in fectious cause, trop neg, dimer neg echo reviewed 65%, no wall motion abnormality, no valvular disease, no LVOT obstruction noted -icu, amio gtt, BB, cards and EP cards following, will follow recs -keep K>4 and mag >2 -follow ucx further diagnoses and plan as noted by resident
--- NOTE | 2018-09-18 16:45 | Discharge Summary ---
<Timothy Alvarado - Last Filed: 09/18/18 16:52> - NOTES TO OUTPATIENT PROVIDER Notes to Outpatient Provider: Patient will need follow-up with cardiology and primary care provider in the outpatient setting 1-2 weeks after discharge. Orders not resulted at time of discharge: Pending orders 09/17/18 16:39 Culture,Urine [RM] Stat 09/18/18 13:52 NM patience perf SPECT multi [NM] Routine SP exercise nuclear stress Routine 09/19/18 04:00 Basic Metabolic Panel AM 0400 Complete Blood Count [HEME] AM 0400 Magnesium AM 0400 Date of Encounter: 09/18/18 Time of Encounter: 08:40 - Discharge Diagnosis (1) Ventricular tachycardia Priority: Primary Status: Acute (2) History of alopecia Priority: Secondary Status: Chronic (3) DVT prophylaxis Priority: Secondary Status: Acute Hospital course: Ms. Chappell is a 33 year old female with past medical history of alopecia who presented to [facility] ED on 09/17/18 with a chief complaint of palpitations. Patient had reported episodes of palpitations that lasted approximately 10-20 minutes the day before. She describes the sensation as her heart fluttering. The initial episode self resolved. However, on the day of presentation, patient experienced similar palpitations, but this episode was accompanied by shortness of breath. This prompted her to go to the emergency department. On arrival, patients vital signs were as follows: Temperature 97.8, pulse 82, respiratory rate 16, blood pressure 140/85, and O2 saturation was 98. Laboratory analysis was unremarkable. Urine toxicology was negative. EKG demonstrated the presence of wide complex tachycardia with prolonged QTC of 615 and a rate of 233. Patient was given a bolus of amiodarone. There was no response to the initial dose. Cardiology was therefore consulted. Patient was given calcium, magnesium, and was started on an amiodarone drip. This controlled her heart rate, and lead to the resolution of her symptoms. Patient was placed in the ICU for further monitoring, and was admitted to the hospitalist service for ongoing monitoring and continuation of the amiodarone drip. Patient was seen and examined on date of discharge. She reported a resolution of her symptoms. She denied having any shortness of breath, visual disturbances, chest pain, discomfort, palpitations, diaphoresis, headache, dizziness, or syncope. She was placed on metoprolol 25 mg twice daily. Her electrolytes were monitored, with a goal potassium of greater than 4 and a magnesium greater than 2. TSH was within normal limits. Elective physiology was consulted. Recommendation was stress test tomorrow for further ischemic evaluation, as well as outpatient cardiac MRI; however patient stated that she would prefer to not wait for her cardiac MRI, and prostate transfer to [facility] for further management. [facility] has accepted the patient to the coronary care floor at the [facility]. No beds available at this time; [facility] will contact the ICU when one becomes available. - Time Spent with Patient Total time spent providing and/or coordinating discharge services: - Discharge Medications Prescriptions: New Metoprolol [Lopressor] 25 mg PO BID tablet Continued Cranberry Conc/C/Bacill Coag [Cranberry Tablet] 1 each PO DAILY Spironolactone 100 mg PO DAILY Desog-E.estradiol/E.estradiol [Viorele 28 Day Tablet] 1 tab PO DAILY Cetirizine HCl [Zyrtec] 10 mg PO DAILY Home Medications: Cetirizine HCl [Zyrtec] 10 mg PO DAILY 09/17/18 [History] Cranberry Conc/C/Bacill Coag [Cranberry Tablet] 1 each PO DAILY 09/17/18 [History] Desog-E.estradiol/E.estradiol [Viorele 28 Day Tablet] 1 tab PO DAILY 09/17/18 [History] Spironolactone 100 mg PO DAILY 09/17/18 [History] Metoprolol [Lopressor] 25 mg PO BID tablet 09/18/18 [Rx] Allergies/Adverse Reactions: Allergy/AdvReac Type Severity Reaction Status Date / Time No Known Allergies Allergy Verified 09/17/18 16:03 Date of admission: 09/17/18 21:07 Primary care physician: Joan Vyas Consults: 09/17/18 18:15 Consult to Cardiology [CONS] Stat Comment: Consulting Provider: Cardiology Jessica Reason for Consult: wide complex tachycardia Call Completed: Yes 09/18/18 00:35 Consult to Electrophysiology (EP) [CONS] Routine Consulting Provider: Electrophysiology Jessica Reason for Consult: Wide-complex ventricular tachycardia Time Notified: 00:35 Call Completed: No Discharging clinician: Timothy Alvarado Anticipated date of discharge: 09/18/18 - Constitutional Vitals: Temp Pulse Resp BP Pulse Ox 98.3 F 99 21 121/89 97 09/18/18 16:19 09/18/18 16:19 09/18/18 16:19 09/18/18 16:19 09/18/18 16:19 Exam: General: conversant, no acute distress Head: atraumatic, normocephalic Eye: PERRL, EOMI, conjuntiva pink, sclera anicteric Neck: Supple, trachea midline; No lymphadenopathy Respiratory: CTAB. No accessory muscle use, wheezes, rales, or rhonchi Cardiovascular: RRR, +S1/+S2; no murmurs, rubs, gallops Abdomen: Soft, nontender Extremities: warm, radial pulses palpable and symmetrical Psychiatric: Normal affect, normal mood Skin: Dry, intact - Patient Status Disposition: Transfer Other Condition: Fair Overall status at discharge: patient is progressing back to baseline - Discharge Instructions Follow Up With: Joan Vyas, BUSINESS APPLICATIONS ANALYST [Primary Care Provider] - - Diet and Activity Activity: increase activity as tolerated Diet: advance to your usual diet <Pam Herrera - Last Filed: 09/18/18 18:17> Orders not resulted at time of discharge: Pending orders 09/17/18 16:39 Culture,Urine [RM] Stat 09/18/18 13:52 NM patience perf SPECT multi [NM] Routine SP exercise nuclear stress Routine 09/19/18 04:00 Basic Metabolic Panel AM 0400 Complete Blood Count [HEME] AM 0400 Magnesium AM 0400 Date of Encounter: 09/18/18 Hospital course: Ms. Chappell is a 33 year old female Discharge discussed with: patient, family, nurse, other - Time Spent with Patient Total time spent providing and/or coordinating discharge services: Time spent: Greater than 30 minutes (60 min) Date of admission: 09/17/18 21:07 Primary care physician: Joan Vyas Consults: 09/17/18 18:15 Consult to Cardiology [CONS] Stat Comment: Consulting Provider: Cardiology [place] Reason for Consult: wide complex tachycardia Call Completed: Yes 09/18/18 00:35 Consult to Electrophysiology (EP) [CONS] Routine Consulting Provider: Electrophysiology [place] Reason for Consult: Wide-complex ventricular tachycardia Time Notified: 00:35 Call Completed: No - Constitutional Vitals: Temp Pulse Resp BP Pulse Ox 98.3 F 122 26 125/86 99 09/18/18 16:19 09/18/18 17:34 09/18/18 17:34 09/18/18 17:34 09/18/18 17:34 - Attending Attestation I examined this patient and my medical decision-making was reviewed with the Resident Physician Dr Aguirre. I agree with the documented findings, disposition and treatment plan as described except to the extent set forth below. Ms Chappell has pmhx alopecia and possible PCOS She is admitted for Wide complex tachycardia determined to be VT, controlled on amio gtt. SEen in consult by cards and EP cards. transitioned off amio gtt and onto BB BID. Was to have stress test in am to begin ischemic work up but would need cardiac MRI outpt as not available here. Pt felt uncomfortable with this cards plan and requested transfer to [facility] for inpt work up completion. Awaiting bed availability. Accepted to [facility]. gen- alert, awake,appears stated age cv- reg rate and rhythm, normal s1,s2, no murmurs appreciated lungs- ctabl, no wheezing, rhonchi or crackles, normal resp efort on room air neuro- AAOx3 Wide Complex tachycardia consistent with VT no identifiable medication cause, tsh wnl, k and mag at goal, no identifiable infectious cause, trop neg, dimer neg echo reviewed 65%, no wall motion abnormality, no valvular disease, no LVOT obstruction noted -amio gtt now Lopressor BID, cards and EP cards following -keep K>4 and mag >2 -follow ucx further diagnoses and plan as noted by resident time spent on dc 60 min transfer to [facility]
--- NOTE | 2018-09-18 16:46 | Event Note ---
Date of Encounter: 09/18/18 Time of Encounter: 16:45 Pt prefers transfer to [facility] for inpt cardiac MRI. [facility] has accepted pt to coronary care floor at [facility]. There are no beds available. [facility] will contact ICU when pt has bed. Discharge paperwork completed. and may dc to [facility] when bed.
[2018-09-19 04:26] LABS: Basophils % 0.3 %; Eosinophils # 0.1 K/mcL (0.0-0.6); Eosinophils % 1.2 %; Hematocrit 42.3 % (35.3-44.9); Hemoglobin 14.1 g/dL (11.5-15.4); Immature Granulocytes % 0.5 % (0-4); Lymphocytes # 3.3 K/mcL (0.6-4.6); Lymphocytes % 28.4 %; Mean Corpuscular HGB Conc 33.3 g/dL (31.6-35.5); Mean Corpuscular Hemoglobin 27.5 pg (28.0-33.3); Mean Corpuscular Volume 82.5 fL (83.0-100.0); Monocytes # 0.9 K/mcL (0.0-1.3); Monocytes % 7.6 %; Neutrophils # 7.3 K/mcL (1.6-8.9); Platelet Count 378 K/mcL (140-400); Red Blood Count 5.13 M/mcL (3.82-4.97); Red Cell Distribution Width 14.4 % (11.5-14.5)
[2018-09-19 04:38] LABS: BUN/Creatinine Ratio 13 (6-26); Blood Urea Nitrogen 10 mg/dL (6-20); Calcium 9.3 mg/dL (8.6-10.3); Carbon Dioxide 21 mEq/L (23-29); Chloride 104 mEq/L (98-107); Glucose 111 mg/dL (70-105); Osmolality,Calculated 286 (280-300); Potassium 4.1 mEq/L (3.5-5.1); Sodium 138 mEq/L (136-145); eGFR For Non-African Americans > 60 (> 60)
[2018-09-19 05:55] LABS: Troponin I < 0.03 ng/mL (< 0.04)
[2018-09-19] MEDS ORDERED: Regadenoson 0.4 MG/5 ML SYRINGE IVP ONE (06:29)
[2018-09-19] MEDS: *HR* Heparin 5,000 UNIT/ML VIAL SQ SCH ×2 (08:23→15:52)
[2018-09-19] MEDS ORDERED: Ibuprofen 800 MG TABLET PO PRN (11:32)
[2018-09-19 16:02] VITALS: BP 126/86
--- NOTE | 2018-09-19 19:25 | Internal Med Progress Note ---
<Timothy Alvarado - Last Filed: 09/19/18 19:24> Hospitalist Progress Note - Encounter Date of Encounter: 09/19/18 Time of Encounter: 09:30 - Subjective Interval History: Patient was seen and examined at bedside; stress test was attempted earlier today, and patient was unable to complete it due to dizziness, nausea, and an episode of vomiting. She states that she still feels somewhat nauseous, but that she has improved. She says that she has a mild headache, but this has been persistent since arrival. Denies chest pain, palpitations, diaphoresis, shortness of breath, or visual disturbances. No further complaints. - Exam Vitals: Temp Pulse Resp BP Pulse Ox 98.3 F 92 20 126/86 98 09/19/18 11:50 09/19/18 16:00 09/19/18 16:00 09/19/18 16:00 09/19/18 16:00 Exam: General: conversant, no acute distress Head: atraumatic, normocephalic Eye: PERRL, EOMI, conjuntiva pink, sclera anicteric Neck: Supple, trachea midline; No lymphadenopathy Respiratory: CTAB. No accessory muscle use, wheezes, rales, or rhonchi Cardiovascular: RRR, +S1/+S2; no murmurs, rubs, gallops Abdomen: Soft, nontender Extremities: warm, radial pulses palpable and symmetrical Psychiatric: Normal affect, normal mood Skin: Dry, intact - Assessment and Plan (1) Ventricular tachycardia Status: Acute Assessment and Plan: ASSESSMENT - Patient initially presented with palpitations, chest discomfort, and shortness of breath - EKG on arrival demonstrated ventricular tachycardia, likely outflow tract; QTC 615 - Etiology is unknown at this time; patient denies recent life stressors, ex cessive caffeine intake, or illicit drug use - UDS was negative; Home medications reviewed; no contributory medications identified - On arrival, adenosine administered; this was ineffective; cardiology was consulted as a result - Patient returned to sinus rhythm after being placed on an amiodarone drip - TTE: EF 65%, normal LV diastolic dysfunction, no valvular abnormalities - TSH within normal limits - Patient was unable to complete a stress test this morning due to nausea and an episode of vomiting PLAN - Continue amiodarone drip, Lopressor 25 mg PO BID - Cardiology and electrophysiology currently following - Plan is for patient to be transferred to [facility] for further diagnostic testing and management; patient has already been accepted, we are waiting for a bed - No further interventions are planned at this time (2) History of alopecia Status: Chronic (3) DVT prophylaxis Status: Acute - Time Spent with Patient Total time spent is greater than 50% in coordination of care (as documented) at patient's floor/unit and/or counseling patient: Internal Medicine: Result - Labs CBC & Chem 7: 09/19/18 03:57 09/19/18 03:57 Labs: Short CBC 09/19/18 Range/Units 03:57 WBC 11.7 H (4.3-11.1) K/mcL Hgb 14.1 (11.5-15.4) g/dL Hct 42.3 (35.3-44.9) % Plt Count 378 (140-400) K/mcL Neutrophils # 7.3 (1.6-8.9) K/mcL BMP 09/19/18 03:57 Sodium 138 Potassium 4.1 Chloride 104 Carbon Dioxide 21 L BUN 10 Creatinine 0.79 Glucose 111 H Calcium 9.3 Cardiac Enzymes 09/19/18 Range/Units 03:57 Troponin I < 0.03 (< 0.04) ng/mL - ABG Interpretation ABG results: PT/INR, D-dimer 351 ng/mLFEU (0-500) 09/17/18 16:23 Consult Discharge Plan - Plan Referrals: Joan Vyas, DECORAT[employer] ENGRAVER [Primary Care Provider] - <Meli Urrutia - Last Filed: 09/19/18 21:29> Hospitalist Progress Note - Encounter Date of Encounter: 09/19/18 - Exam Vitals: Temp Pulse Resp BP Pulse Ox 98.3 F 92 20 126/86 98 09/19/18 11:50 09/19/18 16:00 09/19/18 16:00 09/19/18 16:00 09/19/18 16:00 - Time Spent with Patient Total time spent is greater than 50% in coordination of care (as documented) at patient's floor/unit and/or counseling patient: Internal Medicine: Result - Labs CBC & Chem 7: 09/19/18 03:57 09/19/18 03:57 Labs: Short CBC 09/19/18 Range/Units 03:57 WBC 11.7 H (4.3-11.1) K/mcL Hgb 14.1 (11.5-15.4) g/dL Hct 42.3 (35.3-44.9) % Plt Count 378 (140-400) K/mcL Neutrophils # 7.3 (1.6-8.9) K/mcL BMP 09/19/18 03:57 Sodium 138 Potassium 4.1 Chloride 104 Carbon Dioxide 21 L BUN 10 Creatinine 0.79 Glucose 111 H Calcium 9.3 Cardiac Enzymes 09/19/18 Range/Units 03:57 Troponin I < 0.03 (< 0.04) ng/mL - ABG Interpretation ABG results: PT/INR, D-dimer 351 ng/mLFEU (0-500) 09/17/18 16:23 - Attending Attestation I examined this patient and my medical decision-making was reviewed with the Resident Physician. I agree with the documented findings, disposition and treatment plan as described except to the extent set forth below.
== END 2018-09-19 18:19 | disposition other institution (70) | DRG 310 ==
LOC: ICNU 16:00 → EMEROOARM 16:00 → SUATTDRO 21:07 → OBSVTOIN 21:07 → ICNU 22:20
PROVIDERS: ADMIT Internal Medicine Nephrology; ATTEND Student in an Organized Health Care Education/Training Program